=== PATIENT | female | born 1985 | race Caucasian/White ===

== ENCOUNTER 2024-02-28 06:14 | Day surgery (SDC) | payer MEDICAID ==
[~2024-02-28] VITALS: Ht 157.5 cm; Wt 98.4 kg
[~2024-02-28 06:14] MED LIST: ALBU8.5H; CETI-24 PO; ELET40TA; FAMO40TA3 PO; FLUTISP; ROSU20TA61 PO; TRAZ-257 PO
[2024-02-28] MEDS ORDERED: fentaNYL 100 MCG/2 ML INJECTION As Ordered ONE (07:12)
[2024-02-28] MEDS ORDERED: MIDAZOLAM INJ 2MG/2ML VIAL As Ordered ONE (07:12)
[2024-02-28] MEDS ORDERED: propofoL 200 MG/20 ML VIAL As Ordered ONE (07:13)
[2024-02-28] MEDS ORDERED: LIDOCAINE 2% 100MG/5ML SDV (FOR ANES.) As Ordered ONE (07:13)
[2024-02-28] MEDS ORDERED: OXYMETAZOLINE 0.05% NASAL SPRAY (AFRIN) As Ordered ONE (07:46)
[2024-02-28] MEDS: SCOPOLAMINE 1MG TRANSDERMAL PATCH TOP ONE (09:44)
[2024-02-28] MEDS: ceFAZolin SOD 2 GM in IV 1 EA IV ONE (10:14)
[2024-02-28] MEDS: ceFAZolin 2 GM/D5W 50 ML IV BAG As Ordered ONE (10:23)
[2024-02-28] MEDS ORDERED: ONDANSETRON 4MG 2ML VIAL As Ordered ONE (10:30)
[2024-02-28] MEDS ORDERED: ACETAMINOPHEN 1000MG 100ML IV BAG As Ordered ONE (10:30)
[2024-02-28] MEDS ORDERED: KETOROLAC 60MG 2ML VIAL As Ordered ONE (10:30)
[2024-02-28] MEDS ORDERED: fentaNYL 100 MCG/2 ML INJECTION IV PRN (10:35)
[2024-02-28] MEDS ORDERED: LR 1,000 ML IV SCH (10:35)
[2024-02-28] MEDS ORDERED: ALBUTEROL SULFATE 2.5MG/0.5ML INH NEB SOLN INH ONE (10:35)
[2024-02-28] MEDS: BACITRACIN OINTMENT 30GM TUBE As Ordered ONE (10:35)
[2024-02-28] MEDS ORDERED: PERC5TAB12 PO (10:51)
[2024-02-28] MEDS: ONDANSETRON 4MG 2ML VIAL IV PRN (11:14)
[2024-02-28 12:03] VITALS: BP 128/79; TEMP 97.4; O2SAT 99
== END 2024-02-28 12:08 | disposition home or self-care (01) ==
LOC: M SDC 06:14
PROVIDERS: ATTEND Orthopaedic Surgery Hand Surgery
DX: M25.731 Osteophyte, right wrist (principal); J45.909 Unspecified asthma, uncomplicated; E78.5 Hyperlipidemia, unspecified; K21.9 Gastro-esophageal reflux disease without esophagitis; G43.909 Migraine, unspecified, not intractable, without status migrainosus; G47.33 Obstructive sleep apnea (adult) (pediatric); Z79.51 Long term (current) use of inhaled steroids; Z79.899 Other long term (current) drug therapy
CPT/HCPCS: 26230; 76000; J0131; J0665; J0690; J1100; J1885; J2250; J2405; J3010

== ENCOUNTER → 2024-04-17 | Outpatient (CLI) | payer MEDICAID ==
[~2024-04-17] MED LIST changes: +PERC5TAB12 PO
== END ==
LOC: M SOG 07:58
PROVIDERS: ATTEND Physician Assistant
DX: M79.641 Pain in right hand (principal)